=== PATIENT | female | born 1965 | race Caucasian/White ===

== ENCOUNTER → 2023-07-06 10:25 | Outpatient (REF) | payer OTHER, SELFPAY | LOC: HWWDC 10:25 | PROVIDERS: ATTENDING PHYSICIAN Nurse Practitioner Family | DX: Z12.31 Encounter for screening mammogram for malignant neoplasm of breast (principal); Z13.820 Encounter for screening for osteoporosis | CPT/HCPCS: 77063; 77067; 77080 ==